=== PATIENT | female | born 1970 | race African-American/Black ===

== ENCOUNTER → 2017-02-12 | Outpatient (CLI) | payer BC ==
[~2017-02-12] MED LIST: GADOBUTROL 7.5 MMOL/7.5 ML VIAL IV ONE; SIMV10TA3 PO
--- NOTE | 2017-02-12 14:16 | KCIC ---
EXAM: Brain MRI with and without contrast. HISTORY: Abnormal sensitive smell. TECHNIQUE: Multiplanar, multisequence magnetic resonance imaging of the brain was performed prior to and following the administration of 6 cc Gadavist intravenous contrast. COMPARISON: None. FINDINGS: There is no restricted diffusion to suggest acute or subacute infarction. There is no susceptibility effect to suggest hemorrhage. There is no mass effect or midline shift. There is no hydrocephalus. There are few foci of T2/FLAIR hyperintensity within the cerebral white matter, a nonspecific finding. The orbits, paranasal sinuses and mastoid air cells are unremarkable. There are normal flow voids within the cerebral vessels. No enhancing lesion is seen. IMPRESSION: 1. No acute intercranial finding. 2. Few focal areas of signal change within the cerebral white matter, a nonspecific finding. The lesion distribution and configuration and the age of the patient favor etiologies such as chronic small vessel disease or chronic migraine headaches. The imaging appearance does not favor changes due to demyelinating disease. Electronically signed by: Linda Roberts MD (02/12/2017 2:12 PM) [place] [id number]
== END | disposition home or self-care (01) ==
LOC: KCIC MRI 13:03
PROVIDERS: ATTEND Otolaryngology
DX: G43.909 Migraine, unspecified, not intractable, without status migrainosus (principal); I73.9 Peripheral vascular disease, unspecified; G37.9 Demyelinating disease of central nervous system, unspecified; R43.1 Parosmia
CPT/HCPCS: 70553; A9585

== ENCOUNTER → 2017-05-21 | Outpatient (CLI) | payer BC | END | disposition home or self-care (01) | LOC: ECHO 08:48 | DX: R00.2 Palpitations (principal) | CPT/HCPCS: 93306 ==

== ENCOUNTER → 2018-01-12 | Outpatient (CLI) | payer BC ==
[~2018-01-12] MED LIST changes: -GADOBUTROL 7.5 MMOL/7.5 ML VIAL IV ONE
--- NOTE | 2018-01-12 09:41 | RAD ---
MR#: [id number] Date of Study: 01/12/2018 Ordering Physician: HECTOR GUTIERREZ, Referring Physician: HECTOR GUTIERREZ, Tech: Ruel Mcclain MBA, RDMS, RVT, RDCS, RTR APPROVED REPORT Lower Extremity Venous Study for DVT Patient Location: OUT-PATIENT Indications Lower Extremity Pain: Bilateral Vein Imaging (Right) CFV (R): Compressible SFJ (R): Compressible FEM (R): Compressible POP (R): Compressible DFV (R): Compressible PTV (R): Spontaneous GSV (R): Spontaneous Peroneals (R): Spontaneous Vein Imaging (Left) CFV (L): Compressible SFJ (L): Compressible FEM (L): Compressible POP (L): Compressible DFV (L): Compressible PTV (L): Spontaneous GSV (L): Spontaneous Peroneals (L): Spontaneous Doppler Evaluation (Right) CFV (R): Spontaneous POP (R):Spontaneous Doppler Evaluation (Left) CFV (L):Spontaneous POP (L):Spontaneous Findings The bilateral lower extremity deep veins were evaluated for thrombus with color Doppler, spectral and grayscale images. On the right the grayscale images of the common femoral, superficial femoral and popliteal veins do n ot demonstrate any evidence of thrombus and these veins appear to be compressible. The below-knee vei ns were not well visualized but grossly appear to be compressible. Spectral imaging and color Doppler do not reveal any evidence of obstruction to flow with normal respirophasic variation above the knee . Below the knee there is spontaneous flow noted. On the left, the grayscale images of the common femoral, superficial femoral and popliteal veins do n ot demonstrate any evidence of thrombus and these veins appear to be compressible. The below-knee vei ns again were not well visualized but grossly appear to be compressible. Spectral imaging and color D oppler do not reveal any evidence of obstruction to flow with normal respirophasic variation above th e knee. The below-knee veins demonstrate spontaneous flow. Critical Notification Critical Value: No <Conclusion> Negative for DVT in the bilateral lower extremities. Signed by : Armond Cline, Electronically Approved : 01/12/2018 09:40:40
--- NOTE | 2018-01-12 10:01 | RAD ---
MR#: [id number] Date of Study: 01/12/2018 Ordering Physician: HECTOR GUTIERREZ, Referring Physician: HECTOR GUTIERREZ, Tech: Ruel Mcclain MBA, RDMS, RVT, RDCS, RTR APPROVED REPORT Patient Location : OUT-PATIENT Indications Findings Limited grayscale images of the saphenofemoral junctions do not reveal any obvious evidence of thromb us. The right great saphenous vein measures 4.9 mm and the left great saphenous vein measures 5.7 mm. The bilateral greater and lesser saphenous veins do not show any evidence of reflux. Critical Notification Critical Value: No <Conclusion> Negative for reflux in the bilateral greater and lesser saphenous vein Signed by : Armond Cline, Electronically Approved : 01/12/2018 10:00:12
== END | disposition home or self-care (01) ==
LOC: US 08:01
PROVIDERS: ATTEND Internal Medicine Cardiovascular Disease
DX: M79.604 Pain in right leg (principal); M79.605 Pain in left leg
CPT/HCPCS: 93970